=== PATIENT | male | born 1980 | race Caucasian/White ===

== ENCOUNTER 2016-06-18 19:59 | Emergency (ER) | payer BC ==
[~2016-06-18] VITALS: Ht 185.4 cm; Wt 85.8 kg
[~2016-06-18 19:59] MED LIST: ERYTHROMYC1 APPLICAT RIGHT EYE
[2016-06-18] MEDS ORDERED: TOBREX5 ML RIGHT EYE (21:40)
[2016-06-18] MEDS ORDERED: NORCO 5/3251 TABLET PO (21:40)
[2016-06-18] MEDS ORDERED: ERYTHROMYCIN O3.5 GM RIGHT EYE (21:40)
[2016-06-18 21:53] VITALS: BP 138/71
== END 2016-06-18 21:58 | disposition home or self-care (01) ==
LOC: EME 19:59
PROC: 08C8XZZ Extirpation of Matter from Right Cornea, External Approach (ICD-10-PCS; principal; 2016-06-18)
DX: T15.01XA Foreign body in cornea, right eye, initial encounter (principal)
CPT/HCPCS: 99281; 99284